=== PATIENT | male | born 1950 | race Caucasian/White ===

== ENCOUNTER 2019-07-10 08:10 | Outpatient (CLI) | payer OTHER ==
[~2019-07-10 08:10] MED LIST: ASA81 MG PO; COZAAR100 MG PO; PLAVIX75 MG PO
== END 2019-07-10 15:58 | disposition home or self-care (01) ==
LOC: SONOGRAMA 08:10
DX: K76.0 Fatty (change of) liver, not elsewhere classified (principal); K29.00 Acute gastritis without bleeding